=== PATIENT | female | born 1955 ===

== ENCOUNTER 2018-05-05 14:18 | Emergency (ER) | payer SELFPAY ==
[2018-05-05 14:26] VITALS: BP 128/73
--- NOTE | 2018-05-05 14:50 | UC ---
Lower Extremity/Ankle HPI - HPI Summary HPI Summary: 3 mo . hx of bilat knee pain. Worsening L knee pain over the past few wks. She is visiting from [facility] where she has had an injection in Her R knee which helped. Has knee brace which is helping. tylenol is not helping. Pain can also feel stiff. - History of Current Complaint Chief Complaint: UCLowerExtremity Stated Complaint: PAIN IN KNEES Time Seen by Provider: 05/05/18 14:31 Hx Obtained From: Patient Pain Intensity: 3 Pain Scale Used: 0-10 Numeric Aggravating Factor(s): Standing Alleviating Factor(s): Rest - Allergies/Home Medications Allergies/Adverse Reactions: Allergies Allergy/AdvReac Type Severity Reaction Status Date / Time No Known Allergies Allergy Verified 05/05/18 14:26 Home Medications: Home Medications Acetaminophen [Tylenol] 2 tab PO ONCE 05/05/18 [History Confirmed 05/05/18] PMH/Surg Hx/FS Hx/Imm Hx Previously Healthy: Yes - Surgical History Surgical History: None - Social History Alcohol Use: None Substance Use Type: None Smoking Status (MU): Never Smoked Tobacco Review of Systems All Other Systems Reviewed And Are Negative: Yes Constitutional: Positive: Negative Respiratory: Positive: Negative Cardiovascular: Positive: Negative Musculoskeletal: Positive: Arthralgia - knees. Negative: Edema Neurological: Negative: Weakness, Paresthesia, Numbness Physical Exam Triage Information Reviewed: Yes Appearance: Well-Appearing Vital Signs: Initial Vital Signs Temp 98.9 F 05/05/18 14:23 Pulse 73 05/05/18 14:23 Resp 18 05/05/18 14:23 BP 128/73 05/05/18 14:23 Pulse Ox 99 05/05/18 14:23 Musculoskeletal: Positive: Strength Intact, ROM Intact, Edema @ - L knee minimal.. Negative: Other: - negative anterior drawer test. Neurological: Negative: Abnormal Muscle Tone Lower Extremity Course/Dx - Course Course Of Treatment: Chronic worsening bilat knee pain; L>R. Exam essentially unremarkble. Vitals good. I was going to do an XRAY to obtain degree of suspected Osteoarthritis but family declined. nsaids for pain and if she decides to stay while her family takes care of her she should get f/u at an outpt. family medical provider. - Differential Dx/Diagnosis Differential Diagnosis/HQI/PQRI: Arthritis, Sprain, Strain Provider Diagnosis: Chronic pain of both knees Discharge - Sign-Out/Discharge Documenting (check all that apply): Patient Departure All imaging exams completed and their final reports reviewed: No Studies - Discharge Plan Condition: Good Disposition: HOME Prescriptions: Ibuprofen [Ibu] 600 mg PO TID 30 Days #90 tablet Patient Education Materials: Knee Pain (ED) Referrals: No Primary Care Phys,NOPCP [Primary Care Provider] - Additional Instructions: [place] michael problema chronico. Necessitas karsten un especialista si quieres inyecciones. - Billing Disposition and Condition Condition: GOOD Disposition: Home
== END 2018-05-05 15:48 | disposition home or self-care (01) ==
LOC: UCEAST 14:18
DX: M25.561 Pain in right knee (principal); M25.562 Pain in left knee; G89.29 Other chronic pain
CPT/HCPCS: 99202; G0463